=== PATIENT | male | born 1945 | race Caucasian/White ===

== ENCOUNTER → 2016-07-28 | Outpatient (CLI) | payer MEDICARE, OTHER ==
[~2016-07-28] MED LIST: AMLO10TA82 PO; ASPI-587 PO; ASPI-9 PO; ATEN-155 PO; BENA1TAB58 PO; BENZAPRIL; BNZ40T PO; CHOL400C8 PO; CLIN-62 PO; DOXA2TAB2 PO; DOXA8TAB33 PO; FNT50TD TD; FURO40TA4 PO; GABA600T2 PO; HCT25T PO; HYDR-34 PO; KCL20TCR PO; LORA-794 PO; LORA1TAB PO; MTP50T PO; POTA10CA43 PO; POTA10TA36 PO; SPRN25T PO
--- OUTSIDE RECORDS SUMMARY | 2016-07-28 13:47 | XMS REPORT | Continuity of Care Document ---
Author Author [facility] Organization [facility] Address Unknown Phone Unavailable Care Team Providers Care [employer] Tech Name Role Phone Micheal Osullivan PCP [phone] Source Comments Some departments are not documenting in the electronic medical record. If you do not see the information that you expected, contact Release of Information in the Health Information Management department at [phone] for further assistance in locating additional records.[facility] Active Allergies and Adverse Reactions No Known Allergies Current Medications Prescription Sig. Disp. Refills Start End Date Status Date metoprolol XL (TOPROL XL) Take 50 mg by mouth Active 50 mg tablet daily. doxazosin (CARDURA) 8 mg Take 8 mg by mouth daily. Active tablet 8 mg in am and 2 mg in evening aspirin EC 81 mg tablet Take 81 mg by mouth Active daily. benazepril (LOTENSIN) 40 Take 40 mg by mouth Active mg tablet daily. At noon daily furosemide (LASIX) 40 mg Take 40 mg by mouth Active tablet daily. Every other day potassium chloride SR Take 20 mEq by mouth Active (K-DUR) 20 mEq tablet daily. Every other day ERGOCALCIFEROL (VITAMIN Take by mouth daily. Active D2) (VITAMIN D PO) Active Problems Not on file Social History Tobacco Use Types Packs/Day Years Used Date Never Smoker Alcohol Use Drinks/Week oz/Week Comments Yes 2 drinks per night Last Filed Vital Signs Vital Sign Reading Time Taken Blood Pressure 143/73 11/30/2013 12:30 PM CDT Pulse 44 11/30/2013 12:30 PM CDT Temperature - - Respiratory Rate - - Height - - Weight 108.863 kg (240 lb) 11/30/2013 7:30 AM CDT Body Mass Index - - Oxygen Saturation 98% 11/30/2013 12:30 PM CDT Plan of Care Health Maintenance Due Date Last Done Comments Physical (Comprehensive) 12/31/1950 Exam Pertussis Vaccine 12/31/1954 Tetanus Vaccine 12/31/1960 Colorectal Cancer 12/31/1993 Screening Shingles Vaccine 2004 Prevnar/Pneumovax (#1) 12/31/2008 Influenza Vaccine 02/20/2016 Results from Last 3 Months Not on file
--- NOTE | 2016-07-31 06:54 | ECHOCARDIOGRAPHY REPORT ---
PROCEDURE PHYSICIAN: JARETH GILMAN DATE OF PROCEDURE: 07/28/2016 TWO DIMENSIONAL ECHOCARDIOGRAM REPORT PRIMARY PHYSICIAN: Dr. Osullivan OTHER PHYSICIAN: Dr. Gilman REFERRING PHYSICIAN: ORDERING PHYSICIAN: Day Winter APRN INDICATION FOR THE PROCEDURE: Paroxysmal atrial fibrillation, left bundle branch block, hypertension MEASUREMENTS DERIVED VALUES LV DIAMETER (LAX) NORMALS NORMALS Diastolic 5.4 (3.6-5.2) Eject. Fract. (60%+/-6%) Systolic (2.3-3.9) Diastolic Vol. % Shortening (0.22-0.42) Systolic Vol. Aortic Root 3.6 IVS THICKNESS Diastolic 1.4 (0.6-1.1) LVPW THICKNESS Diastolic 1.2 (0.6-1.1) LA DIAMETER Systolic 4.4 (2.1-3.7) DESCRIPTION: This is a technically difficult study and is not ideal for wall motion analysis. On the views available, global left ventricular systolic function appears well preserved. Left ventricular ejection fraction is estimated to be 65 to 70%. Aortic, mitral and tricuspid valve leaflets show good leaflet excursion. There appears to be mild aortic valve sclerosis and mild mitral annular calcification. There does not appear to be significant pericardial effusion. There appears to be mild concentric left ventricular hypertrophy and mild to moderate left atrium. Doppler imaging shows mild mitral and tricuspid regurgitation. Mitral inflow is consistent with grade 1 diastolic dysfunction of the left ventricle. Peak pressure gradient across the aortic valve is approximately 37 mmHg with a mean gradient of approximately 20 mmHg and the aortic valve area is calculated to be approximately 2.5 sq cm. Pulmonary artery systolic pressure is estimated to be approximately 35 mmHg. There is no evidence of intracardiac shunt on this transthoracic echocardiographic study. Inferior vena cava was difficult to visualize. It appears mildly dilated. CONCLUSION: 1. Technically difficult study. 2. Normal global left ventricular systolic function with an ejection fraction of approximately 65 to 70%. 3. Mild concentric left ventricular hypertrophy. 4. Mild enlargement of the left atrium. 5. Mild mitral and tricuspid regurgitation. 6. Mild diastolic dysfunction of the left ventricle. 7. Aortic valve sclerosis without significant aortic stenosis. 8. Pulmonary artery systolic pressure is estimated to be approximately 35, mmHg. Job ID: [id number] Dictated Date: 07/30/2016 11:10:24 Dry Plasterer Helper Date: 07/31/2016 06:43:54 / theresa
== END ==
LOC: CARD 13:43
PROVIDERS: ATTEND Nurse Practitioner Family
DX: I48.0 Paroxysmal atrial fibrillation (principal); I44.69 Other fascicular block; I44.1 Atrioventricular block, second degree; I10 Essential (primary) hypertension
CPT/HCPCS: 93306

== ENCOUNTER 2016-08-24 09:28 | Outpatient (RCR) | payer MEDICARE, OTHER ==
--- OUTSIDE RECORDS SUMMARY | 2016-07-31 09:31 | XMS REPORT | Continuity of Care Document ---
Author Author [facility] Organization [facility] Address Unknown Phone Unavailable Care Team Providers Care Mosaic Tile Maker Name Role Phone Micheal Osullivan PCP [phone] Source Comments Some departments are not documenting in the electronic medical record. If you do not see the information that you expected, contact Release of Information in the Health Information Management department at [phone] for further assistance in locating additional records.[facility] Active Allergies and Adverse Reactions No [...]
== END 2016-10-29 | disposition home or self-care (01) ==
LOC: CARD 09:28
PROVIDERS: ATTEND Internal Medicine Interventional Cardiology
DX: I48.91 Unspecified atrial fibrillation (principal); I10 Essential (primary) hypertension; I44.69 Other fascicular block; I44.1 Atrioventricular block, second degree; I47.2 Ventricular tachycardia
CPT/HCPCS: 93270

== ENCOUNTER 2016-09-16 20:50 | Outpatient (CLI) | payer MEDICARE, OTHER | END 2016-09-17 06:05 | disposition home or self-care (01) | LOC: SLEEP 20:50 | PROVIDERS: ATTEND Nurse Practitioner Family | DX: G47.33 Obstructive sleep apnea (adult) (pediatric) (principal) | CPT/HCPCS: 95811 ==

== ENCOUNTER → 2017-10-07 | Outpatient (CLI) | payer MEDICARE, OTHER ==
[~2017-10-07] MED LIST changes: +REGADENOSON 0.4 MG/5 ML SYR (LEXISCAN) IV ONE
[2017-10-07] MEDS: CATHETER FLUSH 10 ML SYR IV PRN ×2 (07:12→08:09)
[2017-10-07 08:04] VITALS: BP 173/107
--- NOTE | 2017-10-11 15:37 | STRESS TEST ---
DATE OF SERVICE: 10/07/2017 RESTING AND POST REGADENOSON TECHNETIUM-99M TETROFOSMIN SPECT CT IMAGING ORDERING PHYSICIAN: Dr. Gilman. PRIMARY PHYSICIAN: Dr. Osullivan. CLINICAL DIAGNOSIS: Shortness of breath. Baseline images were carried out after injection of 10.65 mCi technetium-99m Tetrofosmin. This was followed by 0.4 mg regadenoson and 32.2 mCi technetium-99m Tetrofosmin for stress imaging. The electrocardiogram showed atrial fibrillation with left bundle branch block. The electrocardiogram did not change significantly with the regadenoson infusion. He did not report any symptoms. Review of images at rest and following stress does not indicate any significant perfusion defects consistent with significant myocardial ischemia or infarction. Gated images show normal global left ventricular systolic function with normal regional wall motion. Left ventricular ejection fraction is calculated to be 54%. Left ventricular end diastolic volume is 85 mL. TID is absent (1.01). CONCLUSIONS: 1. No evidence of any significant myocardial ischemia or infarction. 2. Normal regional wall motion. 3. Normal global left ventricular systolic function with a calculated ejection fraction of 54%. Job ID: [id number] DocumentID: [id number] Dictated Date: 10/11/2017 13:15:07 Torpedo Shooter Date: 10/11/2017 15:36:36 Dictated By: JARETH GILMAN MD, MA, FACP, FACC,
== END ==
LOC: CARD 06:56
PROVIDERS: ATTEND Internal Medicine Cardiovascular Disease
DX: R06.02 Shortness of breath (principal); I48.0 Paroxysmal atrial fibrillation; G47.33 Obstructive sleep apnea (adult) (pediatric); I10 Essential (primary) hypertension; I44.69 Other fascicular block; N18.3 Chronic kidney disease, stage 3 (moderate); Z98.890 Other specified postprocedural states
CPT/HCPCS: 78452; 93017

== ENCOUNTER → 2017-10-26 | Outpatient (CLI) | payer MEDICARE, OTHER ==
[~2017-10-26] MED LIST changes: -REGADENOSON 0.4 MG/5 ML SYR (LEXISCAN) IV ONE
== END ==
LOC: CARD 12:50
PROVIDERS: ATTEND Internal Medicine Cardiovascular Disease
DX: I48.0 Paroxysmal atrial fibrillation (principal); R06.02 Shortness of breath; G47.33 Obstructive sleep apnea (adult) (pediatric); I12.9 Hypertensive chronic kidney disease with stage 1 through stage 4 chronic kidney disease, or unspecified chronic kidney disease; I44.69 Other fascicular block; N18.3 Chronic kidney disease, stage 3 (moderate); Z98.890 Other specified postprocedural states
CPT/HCPCS: 93306

== ENCOUNTER → 2020-01-10 | Outpatient (CLI) | payer MEDICARE, OTHER | LOC: LABNPT 06:46 | DX: Z20.828 Contact with and (suspected) exposure to other viral communicable diseases (principal) | CPT/HCPCS: 87635 ==

== ENCOUNTER 2020-10-01 04:20 | Emergency (ER) | payer MEDICARE, OTHER ==
[~2020-10-01] VITALS: Ht 177.8 cm; Wt 113.4 kg
[2020-10-01] MEDS ORDERED: OXYMETAZOLINE (AFRIN) 0.05% NA 30 ML BTL STA (04:23)
--- NOTE | 2020-10-01 04:46 | ED EENT ---
History of Present Illness General Chief Complaint: Nasal Problems Stated Complaint: NOSE BLEED Nursing Triage Note: ASSISTED PT VIA ED W/C TO ROOM #6 WITH C/O NOSE BLEED. 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 Source: patient, spouse Exam Limitations: no limitations History of Present Illness Date Seen by Provider: Oct 01, 2020 Time Seen by Provider: 04:20 Initial Comments The patient presents to the ER by private conveyance from home with chief complaint that about half hour prior to arrival he was awoken with a bloody nose. He is on Eliquis for atrial fibrillation by Dr. Francis. He has not had a sore or congested nose lately. He does not pick his nose. He packed cotton in there and could not get it stopped. No nausea. No chest pain shortness of air. No history of coronary disease. He does have elevated blood pressure with anxiety and says he has been taking his blood pressure medications he is on an alpha-karen, hydralazine, metoprolol. Primary care by Dr. Osullivan, cardiology by Dr. Gilman and he sees a kidney doctor for chronic kidney disease. Allergies and Home Medications Allergies Coded Allergies: Iodinated Contrast Media - IV Dye (Verified Allergy, Unknown, 09/27/07) Home Medications Aspirin 81 Mg Tablet.dr, 81 MG PO DAILY, (Reported) Benazepril Hcl 40 Mg Tab, 40 MG PO DAILY @ 1200, (Reported) Cholecalciferol (Vitamin D3) 400 Unit Capsule, 400 UNIT PO DAILY, (Reported) Doxazosin Mesylate 8 Mg Tablet, 8 MG PO DAILY, (Reported) Doxazosin Mesylate 2 Mg Tablet, 2 MG PO HS, (Reported) Furosemide 40 Mg Tablet, 40 MG PO EVERY OTHER DAY, (Reported) TAKES ALONG WITH POTASSIUM Lorazepam 0.5 Mg Tablet, 0.5 MG PO TID PRN for ANXIETY, (Reported) Metoprolol Tartrate 50 Mg Tablet, 50 MG PO BID, (Reported) Potassium Chloride 10 Meq Tab.prt.sr, 10 MEQ PO EVERY OTHER DAY, (Reported) Patient Home Medication List Home Medication List Reviewed: Yes Review of Systems Review of Systems Constitutional: No chills, No diaphoresis Eyes: Denies Blindness, Denies Drainage Ears: Denies Pain, Denies Tinnitus Nose: see HPI, clots; denies congestion; epistaxis Mouth: denies clots, denies pain, denies swelling Throat: denies pain, denies swelling Cardiovascular: No chest pain, No Hx of Intervention, No palpitations All Other Systems Reviewed Negative Unless Noted: Yes Past Sbkhcgg-Ekspvn-Ncrdyq Hx Patient Social History Alcohol Use: Regular Use Alcohol Beverage of Choice: Whiskey Smoking Status: Never a Smoker Recent Infectious Disease Expo: No Immunizations Up To Date Tetanus Booster (TDap): Unknown Date of Pneumonia Vaccine: Mar 28, 2013 Past Medical History Reproductive Disorders: No Sexually Transmitted Disease: No Parathyroid Disease Family Medical History Patient reports no known family medical history. Physical Exam Vital Signs Vital Signs - First Documented 10/01/20 04:20 Temp 36.5 Pulse 92 Resp 20 B/P (MAP) 228/96 (140) Pulse Ox 96 O2 Delivery Room Air Height, Weight, BMI Height: 5'10.00" Weight: 240lbs. 0.0oz. 108.976151tb; 35.00 BMI Method:Stated General Appearance: WD/WN, mild distress Eyes: bilateral eye normal inspection, bilateral eye PERRL, bilateral eye EOMI Ears: bilateral ear auricle normal, bilateral ear canal normal Nose: active bleeding (Left nostril with a small area of abrasion and bleeding on the medial septum.), dried blood Mouth/Throat: other (Dry oral mucosa with bloody secretions) Neck: full range of motion, normal inspection Cardiovascular: normal peripheral pulses, regular rate, rhythm Respiratory: no respiratory distress, no accessory muscle use Neurologic/Psychiatric: alert, oriented x 3, other (Anxious affect) Procedures/Interventions Nasal : Nasal Location: Left Clots Cleared from Nasal: Wall Suction Nasal Drops Instilled: Afrin Inspection with: Otoscope Nasal Procedures: Cauterized w/Silver Nitra Progress Cauterize the subtle anterior abrasion on the medial septum with silver cautery. Patient tolerated procedure well and says that the flow seemed of stanched after that. 2 puffs of Afrin were placed and we put the clamp back on his nose. Progress/Results/Core Measures Results/Orders Lab Results Laboratory Tests Test 10/01/20 04:30 Range/Units White Blood Count 8.9 4.3-11.0 10^3/uL Red Blood Count 4.96 4.30-5.52 10^6/uL Hemoglobin 12.8 L 13.3-17.7 g/dL Hematocrit 42 40-54 % Mean Corpuscular Volume 84 80-99 fL Mean Corpuscular Hemoglobin 26 25-34 pg Mean Corpuscular Hemoglobin Concent 31 L 32-36 g/dL Red Cell Distribution Width 16.2 H 10.0-14.5 % Platelet Count 236 130-400 10^3/uL Mean Platelet Volume 9.0 9.0-12.2 fL Immature Granulocyte % (Auto) 0 % Neutrophils (%) (Auto) 47 42-75 % Lymphocytes (%) (Auto) 39 12-44 % Monocytes (%) (Auto) 10 0-12 % Eosinophils (%) (Auto) 3 0-10 % Basophils (%) (Auto) 1 0-10 % Neutrophils # (Auto) 4.2 1.8-7.8 10^3/uL Lymphocytes # (Auto) 3.5 1.0-4.0 10^3/uL Monocytes # (Auto) 0.9 0.0-1.0 10^3/uL Eosinophils # (Auto) 0.2 0.0-0.3 10^3/uL Basophils # (Auto) 0.0 0.0-0.1 10^3/uL Immature Granulocyte # (Auto) 0.0 0.0-0.1 10^3/uL Sodium Level 142 135-145 MMOL/L Potassium Level 4.0 3.6-5.0 MMOL/L Chloride Level 109 H 98-107 MMOL/L Carbon Dioxide Level 21 21-32 MMOL/L Anion Gap 12 5-14 MMOL/L Blood Urea Nitrogen 33 H 7-18 MG/DL Creatinine 3.05 H 0.60-1.30 MG/DL Estimat Glomerular Filtration Rate 20 BUN/Creatinine Ratio 11 Glucose Level 159 H 70-105 MG/DL Calcium Level 8.5 8.5-10.1 MG/DL Corrected Calcium 8.7 8.5-10.1 MG/DL Total Bilirubin 0.3 0.1-1.0 MG/DL Aspartate Amino Transf (AST/SGOT) 24 5-34 U/L Alanine Aminotransferase (ALT/SGPT) 26 0-55 U/L Alkaline Phosphatase 75 40-136 U/L Total Protein 7.3 6.4-8.2 GM/DL Albumin 3.8 3.2-4.5 GM/DL My Orders Orders - PATRICIA YATES Oxymetazoline 0.05% Nasal Honalo (Afrin 0. (10/01/20 04:23) Cbc With Automated Diff (10/01/20 04:23) Comprehensive Metabolic Panel (10/01/20 04:23) Ed Iv/Invasive Line Start (10/01/20 04:40) Lorazepam Injection (Ativan Injection) (10/01/20 05:00) Hydralazine Injection (Apresoline Inject (10/01/20 05:15) Clonidine Tablet (Catapres Tablet) (10/01/20 05:30) Medications Given in ED Current Medications Medications Dose Ordered Sig/Teodoro Route Start Time Stop Time Status Last Admin Dose Admin Clonidine HCl 0.1 mg ONCE ONCE PO 10/01/20 05:30 10/01/20 05:31 DC 10/01/20 05:36 0.1 MG Hydralazine HCl 10 mg ONCE ONCE IV 10/01/20 05:15 10/01/20 05:16 DC 10/01/20 05:10 10 MG Lorazepam 0.5 mg ONCE ONCE IVP 10/01/20 05:00 10/01/20 05:01 DC 10/01/20 04:57 0.5 MG Vital Signs/I&O 10/01/20 10/01/20 04:20 05:11 Temp 36.5 Pulse 92 63 Resp 20 22 B/P (MAP) 228/96 (140) 226/96 (139) Pulse Ox 96 96 O2 Delivery Room Air Room Air Blood Pressure Mean: 140 Progress Progress Note #1: Time: 04:45 Progress Note The patient's blood pressure significantly elevated and he says this frequently happens when he is nervous. Were going to give it some time to come back down before we decide how to treat it. If it does not come down soon however we will give him 10 mg IV hydralazine. Plan to get some labs to check his hemoglobin. Progress Note #2: Time: 06:04 Progress Note 10 of IV hydralazine failed to have a significant effect but it did bring him down about 10 or 15 mmHg systolic. 0.1 mg of clonidine p.o. however has brought him down to the 180s systolic. He still not having any bleeding and the clamp was removed for about half an hour. He is feeling much more comfortable. Were going to allow him to go home with return precautions. Departure Impression Primary Impression: Epistaxis Disposition: HOME, SELF-CARE Condition: Stable Departure-Patient Inst. Decision time for Depature: 06:05 Referrals: RENATO LOPEZ MD, RICK D MD (PCP/Family) Primary Care Physician Patient Instructions: Nosebleeds (DC) Add. Discharge Instructions: Do not put anything in your nose. Do not blow your nose or clear your nose for the next 2 days. If you have persistent nosebleeds and stop your Eliquis and call Dr. Lopez, ear nose and throat surgeon for an appointment. If you cannot get the bleeding to stop with 2 sprays of Afrin and 40 minutes of nasal clamping then return to the ER. Do not swallow your secretions as this will increase your risk of vomiting. Return to the ER if you are having any chest pain or shortness of air. Take your blood pressure medicines this morning. All discharge instructions reviewed with patient and/or family. Voiced understanding. Copy Copies To 1: RENATO LOPEZ MD, TITUS J Oct 01, 2020 04:46
[2020-10-01 04:50] LABS: BASOPHILS % (AUTO) 1 % (0-10); EOSINOPHILS # (AUTO) 0.2 10^3/uL (0.0-0.3); EOSINOPHILS % (AUTO) 3 % (0-10); HEMATOCRIT 42 % (40-54); HEMOGLOBIN 12.8 g/dL (13.3-17.7); LYMPHOCYTES # (AUTO) 3.5 10^3/uL (1.0-4.0); LYMPHOCYTES % (AUTO) 39 % (12-44); MEAN CORPUSCULAR HEMOGLOBIN 26 pg (25-34); MEAN CORPUSCULAR HGB CONC 31 g/dL (32-36); MEAN CORPUSCULAR VOLUME 84 fL (80-99); MONOCYTES # (AUTO) 0.9 10^3/uL (0.0-1.0); MONOCYTES % (AUTO) 10 % (0-12); NEUTROPHILS # (AUTO) 4.2 10^3/uL (1.8-7.8); NEUTROPHILS % (AUTO) 47 % (42-75); PLATELET COUNT 236 10^3/uL (130-400); WHITE BLOOD COUNT 8.9 10^3/uL (4.3-11.0)
[2020-10-01 04:54] LABS: ALBUMIN 3.8 GM/DL (3.2-4.5)
[2020-10-01 04:56] LABS: CALCIUM 8.5 MG/DL (8.5-10.1)
[2020-10-01 04:57] LABS: TOTAL PROTEIN 7.3 GM/DL (6.4-8.2)
[2020-10-01 04:59] LABS: BILIRUBIN,TOTAL 0.3 MG/DL (0.1-1.0)
[2020-10-01 05:00] LABS: CREATININE SERUM 3.05 MG/DL (0.60-1.30)
[2020-10-01] MEDS ORDERED: LORazepam INJ 2 MG/ML (ATIVAN) VIAL IVP ONE (05:00)
[2020-10-01] MEDS ORDERED: hydrALAZINE (APESOLINE) 20 MG/ML VIAL IV ONE (05:15)
[2020-10-01] MEDS ORDERED: cloNIDine 0.1 MG (CATAPRES) TAB PO ONE (05:30)
[2020-10-01] MEDS ORDERED: ONDA4TAB11 PO (06:15)
[2020-10-01 06:18] VITALS: BP 181/79
== END 2020-10-01 06:18 | disposition home or self-care (01) ==
LOC: EDUNIT# 04:20 → ER 04:22
DX: R04.0 Epistaxis (principal); Z91.041 Radiographic dye allergy status; Z79.82 Long term (current) use of aspirin
CPT/HCPCS: 36415; 80053; 85025; 96374; 96375

== ENCOUNTER → 2020-10-31 | Outpatient (CLI) | payer MEDICARE ==
[~2020-10-31] MED LIST changes: +ONDA4TAB11 PO
--- NOTE | 2020-10-31 10:13 | Diagnostic Imaging Report ---
EXAMINATION: US Retroperitoneal Complete. TECHNIQUE: Multiple Real-time grayscale images were obtained over the kidneys in various projections bilaterally. HISTORY: CKD STAGE 4. COMPARISON: Renal ultrasound 05/18/2012. FINDINGS: The right kidney demonstrates mildly increased echogenicity of the renal cortex which is normal in thickness. The right kidney measures 11.3 x 5.1 x 6.5 cm. No hydronephrosis. An echogenic calculus measures 0.8 cm. There is a 2.2 cm right renal cyst. The left kidney demonstrates mildly increased echogenicity of the cortex which shows focal areas of thinning. The left kidney measures 8.1 x 7.8 x 4.8 cm. No hydronephrosis. The urinary bladder is normal. A right ureteral jet is seen. IMPRESSION: 1. Left renal cortical atrophy. 2. No hydronephrosis. 3. Mildly increased echogenicity of the renal cortices which can be seen with renal parenchymal disease. 4. Nonobstructing 0.8 cm right renal calculus. Dictated by: Dictated on workstation # [id number]
== END ==
LOC: RAD 08:58
PROVIDERS: ATTEND Internal Medicine Nephrology
DX: N18.4 Chronic kidney disease, stage 4 (severe) (principal); N26.1 Atrophy of kidney (terminal); N20.0 Calculus of kidney
CPT/HCPCS: 76770

== ENCOUNTER → 2020-11-21 | Outpatient (CLI) | payer MEDICARE ==
--- NOTE | 2020-11-21 10:52 | Diagnostic Imaging Report ---
INDICATION: KIDNEY STONES. TECHNIQUE: Single supine view of the abdomen 10:31 AM CORRELATION STUDY: None FINDINGS: 5 mm calcification projected the right renal silhouette suspect for potential renal stone. No definitive calcification over the left renal silhouette. No definitive calcification of expected course of either ureter. Rounded calcification right upper quadrant possibly gallstone not excluded. Bowel gas pattern appears nonobstructed. There is a posterior lumbosacral spinal fixation hardware L4-S1. IMPRESSION: 1. Probable 5 mm right renal stone. 2. Question potential for gallstone. Dictated by: Dictated on workstation # [id number]
== END ==
LOC: RAD 10:05
PROVIDERS: ATTEND Internal Medicine Nephrology
DX: N20.0 Calculus of kidney (principal)
CPT/HCPCS: 74018

== ENCOUNTER → 2020-11-29 | Outpatient (CLI) | payer MEDICARE ==
--- NOTE | 2020-11-29 16:00 | Diagnostic Imaging Report ---
EXAMINATION: CT abdomen and pelvis without contrast. TECHNIQUE: Multiple contiguous axial images were obtained through the abdomen and pelvis without the use of intravenous contrast. All CT scans use one or more of the following dose optimizing techniques: automated exposure control, MA and/or KvP adjustment based on patient size and exam type or iterative reconstruction. HISTORY: Kidney stones. COMPARISON: Renal ultrasound 10/31/2020. FINDINGS: Lung bases: There is a partially visualized 1.2 cm right middle lobe pulmonary nodule. There is atelectasis within the lung bases. Heart size is enlarged with a trace pericardial effusion. Solid organs: The liver is normal. Multiple layering hyperdense stones within the gallbladder. There is no biliary ductal dilation. Pancreas is normal. Spleen is normal. There is a subcentimeter fat attenuation lesion within the left adrenal gland compatible with a myelolipoma. There are multiple nonobstructing right renal calculi measuring up to 0.6 cm. There is no hydronephrosis or visualized obstructing ureteral calculus. There is mild bilateral renal cortical atrophy. Bowel: The stomach and small bowel are normal without obstruction. There is scattered colonic diverticulosis. The appendix is normal. Peritoneum: There is no intraperitoneal free fluid or free air. No suspicious lymphadenopathy. Vasculature: Calcification of the aorta without aneurysm. Musculoskeletal: Surgical and degenerative changes of the spine without suspicious osseous lesion or compression fracture. Pelvis: The prostate gland is enlarged. There is mild diffuse bladder wall thickening. IMPRESSION: 1. Nonobstructing right renal calculi measuring up to 0.6 cm. No hydronephrosis. 2. A partially visualized 1.2 cm right middle lobe pulmonary nodule. Consider further evaluation with a dedicated CT of the chest. 3. Colonic diverticulosis without findings of diverticulitis. 4. Mild diffuse bladder wall thickening. Recommend correlation with urinalysis. Dictated by: Dictated on workstation # [id number]
== END ==
LOC: RAD 15:15
PROVIDERS: ATTEND Nurse Practitioner Family
DX: N20.0 Calculus of kidney (principal); N32.89 Other specified disorders of bladder; K57.30 Diverticulosis of large intestine without perforation or abscess without bleeding; R91.1 Solitary pulmonary nodule
CPT/HCPCS: 74176

== ENCOUNTER → 2020-12-18 | Outpatient (CLI) | payer MEDICARE ==
--- NOTE | 2020-12-18 14:30 | Diagnostic Imaging Report ---
PROCEDURE: CT chest without contrast. TECHNIQUE: Multiple contiguous axial images were obtained through the chest without the use of intravenous contrast. Auto Exposure Controls were utilized during the CT exam to meet ALARA standards for radiation dose reduction. INDICATION: Follow-up of pulmonary nodule identified on CT abdomen of 11/29/2020. FINDINGS: The lungs show mild dependent atelectasis bilaterally. The 1.2 cm nodule which is well-circumscribed in the right middle lobe is identified. There is no associated calcification with this. No additional nodules are demonstrated. No mediastinal or hilar adenopathy of pathologic size. There is moderate calcification of the left anterior descending coronary artery. There is also dense calcification of the aortic valve. The aortic root measures 4.2 cm. IMPRESSION: 1. Solitary pulmonary nodule measuring 1.2 cm in the right middle lobe. Follow-up imaging per Fleischner recommendations and patient's clinical risk factors. 2. 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 Dictated by: Dictated on workstation # [id number]
== END ==
LOC: RAD 11:45
DX: I71.9 Aortic aneurysm of unspecified site, without rupture (principal); I31.3 Pericardial effusion (noninflammatory); R91.1 Solitary pulmonary nodule
CPT/HCPCS: 71250

== ENCOUNTER → 2022-04-01 | Outpatient (CLI) | payer MEDICARE | LOC: CARD 14:36 | PROVIDERS: ATTEND Nurse Practitioner Family | DX: I48.0 Paroxysmal atrial fibrillation (principal); I08.0 Rheumatic disorders of both mitral and aortic valves | CPT/HCPCS: 93306 ==

== ENCOUNTER → 2022-07-02 | Outpatient (CLI) | payer MEDICARE ==
--- NOTE | 2022-07-02 16:21 | Diagnostic Imaging Report ---
PROCEDURE: US renal bilateral. TECHNIQUE: Multiple real-time grayscale images were obtained over the kidneys in various projections, bilaterally. INDICATION: Chronic kidney disease stage IV. Right kidney measures 7.6 x 3.1 x 4.8 cm and left kidney measures 9.1 x 4.6 x 4.4 cm. Both kidneys are echogenic consistent with medical renal disease. There is echogenic focus in the right kidney at 9 mm in size suggestive of a nonobstructing calculus. No hydronephrosis is seen on either side. Bladder volume is 83 mL. There is near complete emptying of the bladder on postvoid images. IMPRESSION: Findings consistent with medical renal disease, bilaterally, with probable nonobstructing calculus in right kidney. No hydronephrosis is detected. Dictated by: Dictated on workstation # [id number]
== END ==
LOC: RAD 13:47
PROVIDERS: ATTEND Internal Medicine Nephrology
DX: N18.4 Chronic kidney disease, stage 4 (severe) (principal)
CPT/HCPCS: 76770